=== PATIENT | male | born 1980 | race Caucasian/White ===

== ENCOUNTER 2017-08-04 08:45 | Emergency (ER) | payer OTHER ==
[2017-08-04 08:53] VITALS: BP 148/89
--- NOTE | 2017-08-04 08:59 | UC ---
UC General HPI - HPI Summary HPI Summary: 37 year old male presents for refill on his high blood pressure medication. - History of Current Complaint Chief Complaint: UCMedRefill Stated Complaint: MED REFILL B/P Time Seen by Provider: 08/04/17 08:58 Hx Obtained From: Patient Onset/Duration: Sudden Onset Onset Severity: Moderate Current Severity: Moderate - Allergy/Home Medications Allergies/Adverse Reactions: Allergies Allergy/AdvReac Type Severity Reaction Status Date / Time No Known Allergies Allergy Verified 08/04/17 08:49 Home Medications: Home Medications Lisinopril TAB* [Prinivil TAB*] 20 mg PO DAILY 08/04/17 [History Confirmed 08/04] PMH/Surg Hx/FS Hx/Imm Hx Previously Healthy: Yes - Surgical History Surgical History: None - Social History Alcohol Use: Daily Substance Use Type: None Smoking Status (MU): Current Every Day Smoker Type: Cigarettes, Smokeless Tobacco Amount Used/How Often: 1 PPD - Immunization History Most Recent Influenza Vaccination: no Review of Systems Constitutional: Negative Skin: Negative Eyes: Negative ENT: Negative Respiratory: Negative Cardiovascular: Negative Gastrointestinal: Negative Genitourinary: Negative Motor: Negative Neurovascular: Negative Musculoskeletal: Negative Neurological: Negative Psychological: Negative Is Patient Immunocompromised?: Yes All Other Systems Reviewed And Are Negative: Yes Physical Exam Triage Information Reviewed: Yes Vital Signs: Initial Vital Signs Temp 36.1 C 08/04/17 08:51 Pulse 86 08/04/17 08:51 Resp 16 08/04/17 08:51 BP 148/89 08/04/17 08:51 Pulse Ox 98 08/04/17 08:51 Vital Signs Reviewed: Yes Eye Exam: Normal ENT Exam: Normal Dental Exam: Normal Neck exam: Normal Neck: Positive: 1 Respiratory Exam: Normal Cardiovascular Exam: Normal Abdominal Exam: Normal Musculoskeletal Exam: Normal Neurological Exam: Normal Psychological Exam: Normal Skin Exam: Normal Course/Dx - Differential Dx - Multi-Symptom Provider Diagnoses: hypertension Discharge - Discharge Plan Condition: Stable Disposition: HOME Prescriptions: Lisinopril [Prinivil TAB 20 mg] 20 mg PO DAILY #30 tab Patient Education Materials: Hypertension (ED) Referrals: Jeff Kohler MD [Primary Care Provider] -
== END 2017-08-04 09:11 | disposition home or self-care (01) ==
LOC: UCCORT 08:45
DX: I10 Essential (primary) hypertension (principal); Z76.0 Encounter for issue of repeat prescription; Z72.0 Tobacco use
CPT/HCPCS: 99202; G0463

== ENCOUNTER 2018-05-13 11:12 | Day surgery (SDC) | payer OTHER ==
[~2018-05-13 11:12] MED LIST: Buffered Lidocaine 0.9% SYRIN* 5 ML/SYR SYRINGE INTRADERM ONE; Midazolam* 1 MG/ML 2 ML VIAL (2 MG) ONE; fentaNYL* 50 MCG/ML 2 ML VIAL (100 MCG VIAL) ONE
[2018-05-13] MEDS ORDERED: ceFAZolin 2 GM PREMIX in ORs 2 GM/50 ML BAG IVPB ONE (11:22)
[2018-05-13] MEDS ORDERED: Propofol* 10 MG/ML 20 ML BTL IV PUSH ONE (12:38)
[2018-05-13] MEDS ORDERED: ROPIVACAINE 5 MG/ML 30 ML BTL (0.5%) ONE (12:41)
[2018-05-13] MEDS ORDERED: Naloxone* 0.4 MG/ML 1 ML VIAL IV PRN (13:06)
[2018-05-13 13:51] VITALS: BP 120/74
--- NOTE | 2018-05-22 04:52 | OP ---
OPERATIVE REPORT: DATE OF OPERATION: 05/13/18 DATE OF : 78 SURGEON: Lanre Brown MD HOTEL [employer] ATTENDANT: AURELIA De Souza ANESTHESIOLOGIST: Dr. Harrison. ANESTHESIA: Local MAC. PRE-OP DIAGNOSIS: Transverse right distal fingertip partial amputation against the distal most tip involving a very small portion of the distal phalanx. POST-OP DIAGNOSIS: Transverse right distal fingertip partial amputation against the distal most tip involving a very small portion of the distal phalanx. OPERATIVE PROCEDURE: Revision amputation, right index finger with closure with local advancement flaps. INDICATIONS: Herbert had the injury on 05/04/18. The fingertip was dressed and he was sent over for evaluation. I talked to him about risks and benefits. He understood and wished to proceed. ESTIMATED BLOOD LOSS: 2 mL. COMPLICATIONS: None. FINDINGS: See above and below. DESCRIPTION OF PROCEDURE: Stefano was seen in the preoperative holding area. We came back to the operating room. He got some anesthesia. I then performed a digital block with long acting local anesthetic. The arm was then prepped and draped in the usual fashion. I placed a Tourni-Cot on the finger and this was left on throughout the case proximally. I then used the [place] blade to raise the soft tissue around the distal aspect of the bone, which was exposed distally. I used the curved Iris scissors to trim the nail plate back a few millimeters. I then used the [place] blade to trim the sterile matrix back a few millimeters at the natural level of my anticipated bone cut. I then used the bone cutter to excise the last 2 to 3 mm of the distal phalanx. At this point, everything looked clean and healthy. I then made palmar V-Y Atasoy flap taking care to preserve the digital nerve and arteries on either side. This was then advanced down and sewn through the nail plate dorsally. Palmarly, the edges were closed as a Y with 4-0 nylon suture. The Tourni-Cot was released. The flaps did pink up. The finger was dressed with a soft dressing including Xeroform, 1-inch Luis Enrique and Coban. He was then taken to the recovery room in stable condition. [id number] #: [id number] MTDD
== END 2018-05-13 13:57 | disposition home or self-care (01) ==
LOC: OREAST 11:12
PROVIDERS: ATTEND Orthopaedic Surgery Hand Surgery
DX: S68.620A Partial traumatic transphalangeal amputation of right index finger, initial encounter (principal); Z72.0 Tobacco use; W31.89XA Contact with other specified machinery, initial encounter; Y92.9 Unspecified place or not applicable; I10 Essential (primary) hypertension
CPT/HCPCS: J0690; J2250; J2704; J2795; J3010